=== PATIENT | female | born 1995 | race Caucasian/White ===

== ENCOUNTER 2021-05-13 20:47 | Emergency (ER) | payer BC ==
[~2021-05-13] VITALS: Ht 172.7 cm; Wt 70.5 kg
[2021-05-13 20:54] VITALS: BP 109/65; PULSE 79; TEMP 98
== END 2021-05-13 22:17 | disposition home or self-care (01) ==
LOC: COL.ER 20:47
DX: S99.911A Unspecified injury of right ankle, initial encounter (principal); J45.909 Unspecified asthma, uncomplicated; X50.9XXA Other and unspecified overexertion or strenuous movements or postures, initial encounter; Y93.68 Activity, volleyball (beach) (court)

== ENCOUNTER → 2024-02-05 | Outpatient (CLI) | payer MEDICAID | LOC: COL.RAD 08:59 | DX: R13.19 Other dysphagia (principal) ==